=== PATIENT | female | born 1940 | race Caucasian/White ===

== ENCOUNTER 2024-02-07 12:29 | Outpatient (CLI) | payer MEDICARE, OTHER, SELFPAY ==
--- NOTE | 2024-02-07 12:34 | MM_ITS ---
PROCEDURE INFORMATION: Exam: Left Diagnostic Breast Tomosynthesis Exam date and time: 02/07/2024 12:31 PM Age: 83 years old Clinical indication: Callback for additional assessment of upper central posterior left breast calcifications and lower outer left breast focal asymmetry identified on 01/01/2024 screening mammogram. History of left excisional biopsy 1972 TECHNIQUE: Imaging protocol: Left Diagnostic tomosynthesis and 2D mammography including computer-aided detection (CAD) when performed. Unilateral or bilateral exam. COMPARISON: 01/01/2024 FINDINGS: MAMMOGRAPHY: Breast composition: There are scattered areas of fibroglandular density. Breast mammogram findings: In the central retroareolar left breast, about 7 cm directly behind the nipple, there is a group of predominantly coarse calcifications spanning about 0.5 cm with no morphologically suspicious linear or branching forms. No associated mass or distortion In the lower slightly outer left middle 1/3 about 5 cm from the nipple, there is a low-density mostly circumscribed partially obscured 0.4 cm focal asymmetry with single coarse calcification. This has features highly suggestive of benign fibroadenoma or fibrocystic change. No associated architectural distortion or suspicious calcifications IMPRESSION: Every attempt should be made to retrieve prior images. If prior images can be made available, an addendum will be provided. If there are is no significant interval change, annual mammographic screening will be recommended. If for whatever reason prior films cannot be retrieved within 2 weeks, the patient will be recalled for the following: Six-month follow-up left diagnostic mammogram is recommended to assure stability of central retroareolar left breast calcifications and slightly outer lower left middle 1/3 calcification with associated benign-appearing 0.4 cm asymmetry ASSESSMENT: BI-RADS category 3: Probably benign
== END 2024-02-07 23:59 | disposition home or self-care (01) ==
LOC: RAD 12:31
PROVIDERS: PCP Family Medicine; Visit Provider Family Medicine
DX: R92.8 Other abnormal and inconclusive findings on diagnostic imaging of breast (principal)
CPT/HCPCS: 77061; 77065; G0279